=== PATIENT | female | born 1955 | race Caucasian/White ===

== ENCOUNTER → 2018-10-16 14:12 | Outpatient (CLI) | payer OTHER, SELFPAY ==
[2018-09-27 12:56] VITALS: BMI 31.0
[2018-10-16 15:50] LABS: Anion Gap 8 (5-15); BUN 13 mg/dL (7-18); BUN/Creat Ratio 20.2 RATIO (10-20); Calcium,Total 9.7 mg/dL (8.5-10.1); Chloride 106 mmol/L (98-107); Creatinine, Serum 0.64 mg/dL (0.55-1.02); EST Glomerular Filtration Rate 99 mL/min (>60); Est Glom Filt Rate - Afr Amer 119 mL/min (>60); Glucose 83 mg/dL (74-106); Potassium 3.4 mmol/L (3.5-5.1); Sodium Level 143 mmol/L (136-145)
--- OUTSIDE RECORDS SUMMARY | 2018-12-21 11:17 | XMS RPT_ITS ---
:1955 Author Organization [facility] Care Team Providers Name Role Phone Domingo Hernandezlas Attending Unavailable Brown, Tino Referring Unavailable Brown, Tino Attending Unavailable Brown, Tino Referring Unavailable Brown, Tino Primary Care Unavailable Milla Domínguez Attending Unavailable Brown, Tino Attending Unavailable Brown, Tino Referring Unavailable Brown, Tino Primary Care Unavailable PROBLEMS PROBLEMS DATE TYPE CONDITION / CODE ATTENDING STATUS SOURCE 09/27/2018 Unknown I10 - Essential Brown, Tino Active [place] (primary) [facility] hypertension / Hospital I10(ICD-10) Repository 03/19/2018 Unknown F41.9 - Anxiety Brown, Tino Active [place] disorder, Community unspecified / Hospital F41.9(ICD-10) Repository PROCEDURES PROCEDURES No Procedure Records FoundRESULTS RESULTS BASIC METABOLIC Collected: 10/16/2018 Status: F Source: [place] PROFILE (BMP) 2:19 PM [facility] REPOSITORY TYPE CODE TESTS RESULT OUT OF RANGE REFERENCE UNITS LAB L501.0100 74-106 mg/dL Normal GLU 83 Result Comment: Please note revised GLUCOSE reference range effective 2017. LAB L501.1000 7-18 mg/dL Normal BUN 13 LAB L501.1100 0.55-1.02 mg/dL Normal CREAT,SERUM 0.64 Result Comment: The validity of the calculated GFR AND GFRAA in patients over 70 years has not been determined. Clinical correlation is essential. LAB L501.1110 >60 mL/min Normal EST GFR 99 Result Comment: Non- GFR Calc LAB L501.1115 >60 mL/min Normal EST GFR - AA 119 Result Comment: GFR Calc LAB L501.1300 10-20 RATIO High BUN/CRE 20.2 LAB L501.2200 8.5-10.1 mg/dL CA Normal 9.7 LAB L501.5300 136-145 mmol/L NA Normal 143 LAB L501.5600 3.5-5.1 mmol/L Low K 3.4 LAB L501.5900 98-107 mmol/L CL Normal 106 LAB L501.6100 21.0-32.0 mmol/L Normal CO2 29.0 LAB L501.6200 5-15 Normal GAP 8 Performed By: #### L500.2500 #### [facility] [address] [place], [address] INTERNAL MEDICINE Observed: 09/27/2018 Status: F Source: [place] OFFICE VISIT 1:33 PM [facility] REPOSITORY [facility] [address] [place] [address] [place] [address] OFFICE VISIT Date of Service: 09/27/18 MR#: [id number] Acct: [id number] Name: DEYANIRA MISHRA Rep #: [id number] : 1955 Provider: Tino Hernandez DO Age/Sex: 62/F Location: [facility] Status: Signed Intake Vital Signs09/27/18 Height 5 ft Intake Visit Reasons: 6 MO FU Chief Complaint: medication refills Is patient in pain?: No Allergies Penicillins Allergy (Severe, Verified 03/19/18 14:17) hives Medications venlafaxine ER 75 mg capsule,extended release 24 hr 75 mg PO QDAY #90 cap 07/11/18 [Rx] amlodipine 5 mg-benazepril 20 mg capsule 1 cap PO QDAY #90 cap 09/27/18 [Rx Confirmed 09/27/18] Post menopausal: Yes PFSH Medical History Anxiety (Chronic) Hypertension (Chronic) Family History Father Myocardial infarction, Onset Age: 56 Mother Hypertension Heart disease Parkinsons Grandmother Diabetes Social History Smoking Status: Never smoker alcohol intake: never substance use type: does not use what type of physical activity do you participate in: walking frequency: 3-4 times per week HPI HPI Chief Complaint: medication refills Details: DEYANIRA MISHRA, is a 62 F who presents to the office today for checkup on her medications. She reports no new symptoms or problems has been taking her blood pressure regularly and is lost 5 pounds since she was last seen. ROS Const Constitutional: No weight change, body ache, chills, fatigue, sleep problems, fever(s), change in appetite, snoring, weakness, frequent falls, headache(s) or excessive sweating Eyes Eyes: No change in vision, eye pain, light sensitivity or blurry vision ENT ENT: No headache(s), abnormal hearing, ear pain, tinnitus, nasal congestion, sore throat or neck pain Resp Respiratory: No snoring, cough, shortness of breath or wheezing Cardio Cardiology: No excessive sweating, chest pain at rest, chest pain with exertion, shortness of breath, dyspnea on exertion, palpitations, orthopnea or lightheadedness Gastro GI: No abdominal pain, change in bowel habits, constipation, diarrhea, vomiting, nausea/dyspepsia or cramping Genitourinary-Female: No burning urination, painful urination, urinary incontinence, urinary frequency, abnormal vaginal bleeding, pelvic pain or other Musc Musculoskeletal: No neck pain, abnormal walking, joint pain, back pain, limited range of motion, numbness or tingling Skin Skin: No redness, dry skin, itching, lesions, wounds or rash Neuro Neurology: No weakness, frequent falls, headache(s), abnormal hearing, abnormal walking, numbness, tingling, abnormal speech, dizziness or memory loss Psych Psychiatric: No change in appetite, No memory loss, No anxiety, No depression, No Thoughts of harming yourself/Others Endo Endocrine: No fatigue, excessive sweating, cold intolerance, increased thirst/drinking, heat intolerance, flushing or increased hunger Aller/Imm Allergy/Immunologic: No wheezing, itchy eyes, hives or seasonal allergy symptoms Negrito/Lymp Hematologic/Lymphatic: No easy bleeding, easy bruising or enlarged lymph nodes Exam Const General: cooperative, healthy appearing Nutritional Appearance: average body habitus Orientation: oriented x3 Neck Neck mass: No Resp Effort AND Inspection: normal respiratory effort, symmetric chest movement Auscultation: Bilateral: Clear to Auscultation Cardio Rate: regular rate Rhythm: regular rhythm GI Inspection: normal to inspection Auscultation: normal bowel sounds Skin General: no rashes or lesions noted Neuro General: oriented x3, CN's II-XI intact bilaterally, normal light touch, pain and propioception Extrem General: normal to inspection, no clubbing, cyanosis or edema Psych Appearance: grossly normal Affect: normal affect Attitude: cooperative Assessment AND Plan Problems 1. Anxiety F41.9 2. Hypertension I10 Plan Patient's blood pressure medication was adjusted and the basic medical profile was ordered to see if there is any change in kidney function. I could not explain her increase in blood pressure except for the most common reason and that is advancing age. Physically she is fine on examination. She will have a daughter who is a nurse check her blood pressure at home after she has been on the new dose for several weeks and I gave her parameters to follow on when to call me if the pressures exceeded what I would like. Orders Orders: Medications Changed: Plan Detail Follow Up 6 Months Coding Level of Care Code Off vis,est,level 3 Diagnoses Anxiety F41.9 Hypertension I10 09/27/18 1333 <Electronically signed by Tino Hernandez DO> Date Tino Hernandez DO Cosigner Signature: Date (if applicable) CC: INTERNAL MEDICINE Observed: 03/19/2018 Status: F Source: [place] OFFICE VISIT 2:54 PM [facility] [address] [place] [address] OFFICE VISIT Date of Service: 03/19/18 MR#: [id number] Acct: [id number] Name: DEYANIRA MISHRA Rep #: [id number] : 1955 Provider: Tino Hernandez DO Age/Sex: 62/F Location: [facility] Status: Signed Intake Vital Signs03/19/18 Height 5 ft Intake Visit Reasons: EST Chief Complaint: medication refills Is patient in pain?: No Allergies Penicillins Allergy (Severe, Verified 03/19/18 14:17) hives Medications amlodipine 5 mg-benazepril 10 mg capsule 1 cap PO QDAY #60 cap 03/19/18 [Rx Confirmed 03/19/18] venlafaxine ER 75 mg capsule,extended release 24 hr 75 mg PO QDAY #60 cap 03/19/18 [Rx Confirmed 03/19/18] Post menopausal: Yes PFSH Medical History Anxiety (Chronic) Hypertension (Chronic) Family History Father Myocardial infarction, Onset Age: 56 Mother Hypertension Heart disease Parkinsons Grandmother Diabetes Social History Smoking Status: Never smoker alcohol intake: never substance use type: does not use what type of physical activity do you participate in: walking frequency: 3-4 times per week HPI HPI Chief Complaint: medication refills Details: DEYANIRA MISHRA, is a 62 F who presents to the office today for medication refills, and discussion about anxiety. ROS Const Constitutional: No weight change, body ache, chills, fatigue, sleep problems, fever(s), change in appetite, snoring, weakness, frequent falls, headache(s) or excessive sweating Eyes Eyes: No change in vision, eye pain, light sensitivity or blurry vision ENT ENT: No headache(s), abnormal hearing, ear pain, tinnitus, nasal congestion, sore throat or neck pain Resp Respiratory: No snoring, cough, shortness of breath or wheezing Cardio Cardiology: No excessive sweating, chest pain at rest, chest pain with exertion, shortness of breath, dyspnea on exertion, palpitations, orthopnea or lightheadedness Gastro GI: No abdominal pain, change in bowel habits, constipation, diarrhea, vomiting, nausea/dyspepsia or cramping Genitourinary-Female: No burning urination, painful urination, urinary incontinence, urinary frequency, abnormal vaginal bleeding, pelvic pain or other Musc Musculoskeletal: No neck pain, abnormal walking, joint pain, back pain, limited range of motion, numbness or tingling Skin Skin: No redness, dry skin, itching, lesions, wounds or rash Neuro Neurology: No weakness, frequent falls, headache(s), abnormal hearing, abnormal walking, numbness, tingling, abnormal speech, dizziness or memory loss Psych Psychiatric: No change in appetite, No memory loss, No anxiety, No depression, No Thoughts of harming yourself/Others Endo Endocrine: No fatigue, excessive sweating, cold intolerance, increased thirst/drinking, heat intolerance, flushing or increased hunger Aller/Imm Allergy/Immunologic: No wheezing, itchy eyes, hives or seasonal allergy symptoms Negrito/Lymp Hematologic/Lymphatic: No easy bleeding, easy bruising or enlarged lymph nodes Exam Const General: cooperative, healthy appearing Nutritional Appearance: average body habitus Orientation: oriented x3 Neck Neck mass: No Resp Effort AND Inspection: normal respiratory effort, symmetric chest movement Auscultation: Bilateral: Clear to Auscultation Cardio Rate: regular rate Rhythm: regular rhythm GI Inspection: normal to inspection Auscultation: normal bowel sounds Skin General: no rashes or lesions noted Neuro General: oriented x3, CN's II-XI intact bilaterally, normal light touch, pain and propioception Extrem General: normal to inspection, no clubbing, cyanosis or edema Psych Appearance: grossly normal Affect: normal affect Attitude: cooperative Assessment AND Plan Problems 1. Hypertension I10 2. Anxiety F41.9 Plan Pt. is here without complaints, she has done well, but is under a lot of stress. She has a daughter who had a post hysterectomy, and a grandchild with RSN. She will need a follow up for her depression medications. Physical exam was unchanged. Medications Refilled: Plan Detail Follow Up 6 Months Coding Level of Care Code Off vis,est,level 3 Diagnoses Hypertension I10 Anxiety F41.9 03/19/18 4963 <Electronically signed by Tino Hernandez DO> Date Tino Hernandez DO Cosigner Signature: Date (if applicable) CC: ALLERGIES ALLERGIES DATE TYPE / CODE NAME / CODE REACTION SEVERITY SOURCE 03/19/2018 Drug Penicillins/ Hives [facility] Allergy/4160 [id number](R Hospital 32089(SNOMED XNORM) Repository CT) ENCOUNTERS ENCOUNTERS ADMIT/DISCHARGE ACCOUNT ADMITTING ENCOUNTER LOCATION SOURCE NUMBER CLASS 10/16/2018 [id number] Ambulatory [place] 3 [facility] ing:LAB Repository 09/27/2018/ [id number] Ambulatory BMSBuilding:B [place] [facility] 7 [facility] Repository 03/19/2018/ [id number] Ambulatory BMSBuilding:[facility] [place] 8 7 [facility] Repository 02/01/2018 [id number] Ambulatory BMSBuilding:B [place] 5 [facility] Repository PAYERS PAYERS ENCOUNTER GUARANTOR PAYER SUBSCRIBER SOURCE 10/16/2018 DEYANIRA J Primary DEYANIRA J [place] [id number] TURPIN Insurance:AETNAPolicy BOLDMANDOB: [facility], [facility]: [id number] [address]Cwp: [id number] Repository Date:[id number] [place] [address]GA: 10/16/2018 Secondary NOT GIVENUNK [place] Insurance:SELF PAY [facility] Number: Effective Repository Date:2018-10-16 09/27/2018 DEYANIRA Primary DEYANIRA [place] [id number] PAPI Insurance:AETNAPolicy BOLDMANDOB: [facility], Number: [id number] [address]Ovx: [id number] Repository Date:[id number] [address] () [id number], [place] [address]YN: 09/27/2018 Secondary NOT GIVENUNK [place] Insurance:SELF PAY [facility] Number: Effective Repository Date:2018-09-25 03/19/2018 [place] Primary DEYANIRA [place] [id number] Insurance:AETNAPolic BOLDMANDOB: [facility] Number: [id number] [id number] Repository [address]ln: [phone]) Date:2937-28-92FE [phone] () [id number] [place] [address]HE: 03/19/2018 Secondary NOT GIVENUNK [place] Insurance:SELF PAY [facility] Effective Repository Date:2018-01-08 02/01/2018 [place] Primary [place] [id number] Insurance:AETNAPolicy BoldmanDOB: [facility] Number: [id number] [id number] Repository [address]Duz: (330) Date:5826-17-54UG [phone] () [id number] [place] [address]KN: 02/01/2018 Secondary NOT GIVENUNK [place] Insurance:SELF PAY [facility] Number: Effective Repository Date:2018-02-01
== END ==
PROVIDERS: Family Provider Family Medicine; PCP Family Medicine; Referring Provider Family Medicine; Visit Provider Family Medicine
DX: I10 Essential (primary) hypertension (principal)
CPT/HCPCS: 36415; 80048

== ENCOUNTER → 2019-11-03 11:48 | Outpatient (CLI) | payer MEDICARE, OTHER, SELFPAY ==
[2019-10-23 13:43] VITALS: BMI 31.0
[2019-11-03 13:04] LABS: Anion Gap 4 (5-15); BUN 8 mg/dL (7-18); BUN/Creat Ratio 11.7 RATIO (10-20); Calcium,Total 9.1 mg/dL (8.5-10.1); Chloride 108 mmol/L (98-107); Creatinine, Serum 0.68 mg/dL (0.55-1.02); EST Glomerular Filtration Rate 91 mL/min (>60); Est Glom Filt Rate - Afr Amer 110 mL/min (>60); Glucose 89 mg/dL (74-106); Potassium 3.3 mmol/L (3.5-5.1); Sodium Level 142 mmol/L (136-145)
== END ==
PROVIDERS: PCP Family Medicine; Referring Provider Family Medicine; Visit Provider Family Medicine
DX: I10 Essential (primary) hypertension (principal)
CPT/HCPCS: 36415; 80048

== ENCOUNTER → 2020-11-30 13:29 | Outpatient (CLI) | payer MEDICARE, OTHER, SELFPAY ==
[2020-11-30 13:00] VITALS: BMI 31.2
[2020-11-30 15:22] LABS: Anion Gap 4 (5-15); BUN 16 mg/dL (7-18); BUN/Creat Ratio 24.2 RATIO (10-20); Calcium,Total 9.4 mg/dL (8.5-10.1); Chloride 106 mmol/L (98-107); Creatinine, Serum 0.66 mg/dL (0.55-1.02); EST Glomerular Filtration Rate 95 mL/min (>60); Est Glom Filt Rate - Afr Amer 115 mL/min (>60); Glucose 87 mg/dL (74-106); Potassium 3.5 mmol/L (3.5-5.1); Sodium Level 141 mmol/L (136-145)
== END ==
PROVIDERS: PCP Family Medicine; Visit Provider Family Medicine
DX: I10 Essential (primary) hypertension (principal)
CPT/HCPCS: 36415; 80048

== ENCOUNTER → 2020-12-07 13:30 | Outpatient (CLI) | payer MEDICARE, OTHER, SELFPAY ==
[2020-11-30 13:00] VITALS: BMI 31.2
--- NOTE | 2020-12-07 13:33 | BI_ITS ---
MAMMOGRAPHY - BILATERAL SCREENING REASON FOR EXAM: Female, 65 years old. Routine annual screening examination. PERTINENT HISTORY: PAT AND MAT AUNTS AGES 30S-50S NO SX TECHNIQUE: Digital bilateral breast sydnie (3D mammographic acquisition) in the CC and MLO projections. 2-D mediolateral oblique (MLO) and craniocaudad (CC) views of both breasts were obtained. CAD: Full Field Digital Mammography with Computer Added Detection was performed. COMPARISON: 04/13/2017 FINDINGS: Breast Composition: The breasts are almost entirely fatty. There are no dominant masses or suspicious calcifications. No other significant abnormalities are identified. BI/SCRN MAMM (CAD)W/SYDNIE BILAT IMPRESSION: Stable bilateral screening mammogram. Yearly follow-up mammogram recommended. (A) ASSESSMENT CATEGORY: BIRADS Category 2: Benign. A letter regarding these results will be sent to the patient by the facility within 30 days. Approximately 10% of breast cancers are not detected by mammography. A normal mammogram should not delay biopsy of a clinically suspicious abnormality. [id number] Electronically Signed: Tisha Matos MD at 16:51 EST Tel , Service support ,
== END ==
PROVIDERS: PCP Family Medicine; Referring Provider Family Medicine; Visit Provider Family Medicine
DX: Z12.31 Encounter for screening mammogram for malignant neoplasm of breast (principal)
CPT/HCPCS: 77063; 77067

== ENCOUNTER 2021-03-22 13:40 | Emergency (ER) | payer MEDICARE, OTHER, SELFPAY ==
[2020-11-30 13:00] VITALS: BMI 31.2
[2021-03-22 13:40] VITALS: BP 148/74; PULSE 80; RESP 16; TEMP 36.4; O2SAT 96; BMI 29.5
--- NOTE | 2021-03-22 14:56 | EX.ED.GENINJ ---
HPI History of Present Illness Chief Complaint: Laceration Informant: patient Onset/Context/Timing Onset: Today (JPTA) Mechanism/Context: Blunt Injury Location of pain/injuries: - (left upper face) Quality of Pain: - (sore) Current Severity: Mild Maximum Severity: Mild Worsened by: palpation Relieved by: leaving alone Associated Symptoms Associated Symptoms: Negative for Parasthesias, Weakness, Loss of function, Loss of consciousness and Amnesia Narrative Narrative: Patient was trimming a tree and a branch snapped back and accidentally caused the tools she was using to hit her in the face above the left eyebrow, sustaining a laceration. No loss of consciousness, she has a mild headache, no nausea or vomiting, vision changes, foreign body sensation in her eyes or skin, or any other systemic symptoms. Her daughter used some butterfly bandages to fix it prior to arrival, she presents for evaluation. Tetanus Immunization: 5-[address] [facility] Medical History Anxiety History of rheumatic fever as a child Hypertension Home Medications amlodipine 5 mg-benazepril 20 mg capsule 1 cap PO QDAY #30 cap 11/30/20 [Rx Last Taken Unknown] venlafaxine 150 mg capsule,extended release 24 hr 150 mg PO QDAY #30 cap 11/30/20 [Rx Last Taken Unknown] buspirone 10 mg tablet 10 mg PO BID #60 tablet 01/14/21 [Rx Last Taken Unknown] Allergy/AdvReac Type Severity Reaction Status Date / Time Penicillins Allergy Severe hives Verified 03/22/21 13:42 Family History Father Myocardial infarction, Onset Age: 56 Mother Hypertension Heart disease Parkinsons Grandmother Diabetes Surgical History (Updated 03/22/21 @ 14:27 by Giuliana Ervin) History of tonsillectomy Social History Smoking Status: Never smoker alcohol intake: never substance use type: does not use what type of physical activity do you participate in: walking frequency: 3-4 times per week ROS ROS ED Constitutional Constitutional ED: Denies chills or fever(s) Eyes Eyes: Denies change in vision, discharge from eye(s), eye pain or foreign body ENT ENT ED: Reports as per HPI; Denies dental pain, discharge from eye(s) or ear pain Gastrointestinal Gastrointestinal: Denies nausea or vomiting Musculoskeletal Musculoskeletal: Denies back pain, extremity pain or neck pain Integumentary Reports as per HPI and wounds; Denies Abrasions or rash Neurologic Neurologic: Denies paresthesias or weakness EXAM Physical Exam Const Vital Signs: 03/22/21 13:40 Temperature 97.6 F L Temperature Source Temporal Pulse Rate 80 Respiratory Rate 16 Blood Pressure 148/74 H Blood Pressure Mean 98 Pulse Ox 96 Oxygen Delivery Method Room Air Positive well nourished and well developed General Appearance ED: well developed and NAD HEENT HEENT Narrative: Laceration above the left eyebrow, no crepitance or depression. Midface stable and otherwise atraumatic. Eyes PERRL and EOMs intact bilaterally Eyes Narrative: No scleral/conjunctival injection or signs of foreign body Neck full ROM and supple Back/Spine normal ROM and normal to inspection Neuro oriented x3, no focal motor deficits and no sensory deficits noted Sensorium / Orientation: alert Psych mental status grossly normal and thought process normal Skin Skin Narrative: 1 cm laceration left upper face above the eyebrow with small contusion without hematoma, crepitance, depression. No tenderness at the superior orbital brim. 2 butterfly bandages are across the wound, and there is good skin edge apposition with no active bleeding or signs of obvious contamination Rashes: no rashes MDM MDM MDM Narrative Medical decision making narrative: Patient decided to decline a tetanus update and will check with her doctor on exactly when she last received it which I think is fine I think this is a relatively low risk injury. With regards to her laceration, I do not think removing the bandages and suturing or gluing would provide better skin edge apposition then the butterfly bandages that are currently there. They cleaned it, we discussed looking for signs and symptoms of infection, and reasons to return but they were comfortable with this plan, I recommend removing the butterfly bandages in 5-6 days. Discharge Plan Triage Chief Complaint: Laceration ED Provider: Mane Parks Dx/Rx/DC Orders Clinical Impression: Facial laceration Instructions: ED Laceration Small or ... Prescriptions: No Action amlodipine-benazepril 5-20 mg capsule 1 cap PO QDAY Qty: 30 RF: 12 venlafaxine 150 mg capsule,extended release 24hr 150 mg PO QDAY Qty: 30 RF: 6 buspirone 10 mg tablet 10 mg PO BID Qty: 60 RF: 2 Primary Care Provider: Tino Hernandez Referrals: Tino Hernandez, [Primary Care Provider] - As Needed Disposition Disposition: Home, Self Care Discharge Date/Time: 03/22/21 15:04
== END 2021-03-22 15:04 | disposition home or self-care (01) ==
PROVIDERS: Emergency Provider Emergency Medicine; PCP Family Medicine
DX: S01.81XA Laceration without foreign body of other part of head, initial encounter (principal); W27.8XXA Contact with other nonpowered hand tool, initial encounter; Y93.89 Activity, other specified; Y92.89 Other specified places as the place of occurrence of the external cause; Y99.9 Unspecified external cause status; F41.9 Anxiety disorder, unspecified; I10 Essential (primary) hypertension
CPT/HCPCS: 99282

== ENCOUNTER → 2021-04-26 14:52 | Outpatient (CLI) | payer MEDICARE, OTHER, SELFPAY ==
[2021-04-26 14:35] VITALS: BMI 29.5
[2021-04-26 17:15] LABS: Absolute Lymphocyte Count 2.27 X10^3/uL (0.83-4.51); Absolute Neutrophil Count 4.8 X10^3/uL (2.0-7.7); Basophil# 0.06 X10^3/uL; Basophil% 0.8 % (0-1); Eosinophil# 0.09 X10^3/uL; Eosinophils% 1.1 % (0-5); Hematocrit 46.3 % (37-47); Hemoglobin 15.5 g/dL (12.0-15.0); Lymphocyte # 2.27 X10^3/ul (0.83-4.51); Lymphocyte % 28.8 % (19-41); Mean Corp Hgb Conc 33.5 g/dL (32-36); Mean Corpuscular Hgb 31.4 pg (27.0-32.0); Mean Corpuscular Volume 93.7 fL (81-99); Mean Platelet Vol. 10.6 fl (6.2-12.0); Monocyte# 0.66 X10^3/uL; Monocyte% 8.4 % (0-10); NRBC Flagged by Analyzer 0 % (0-5); Neutrophil # 4.78 X10^3/uL (2.7-7.7); Neutrophil % 60.6 % (47-70); Platelet Count 383 K/mm3 (150-450); RBC Distribution Width CV 12.8 % (11.6-14.6); Red Blood Count 4.94 M/mm3 (4.2-5.4); White Blood Count 7.9 K/mm3 (4.4-11.0)
== END ==
PROVIDERS: PCP Family Medicine; Referring Provider Nurse Practitioner Family; Visit Provider Nurse Practitioner Family
DX: I10 Essential (primary) hypertension (principal)
CPT/HCPCS: 36415; 84443; 85025

== ENCOUNTER → 2021-08-23 13:51 | Outpatient (CLI) | payer MEDICARE, OTHER, SELFPAY ==
[2021-08-23 15:14] LABS: Absolute Lymphocyte Count 2.38 X10^3/uL (0.83-4.51); Absolute Neutrophil Count 3.4 X10^3/uL (2.0-7.7); Basophil# 0.05 X10^3/uL; Basophil% 0.8 % (0-1); Eosinophil# 0.13 X10^3/uL; Hematocrit 42.6 % (37-47); Hemoglobin 14.5 g/dL (12.0-15.0); Lymphocyte # 2.38 X10^3/ul (0.83-4.51); Lymphocyte % 36.4 % (19-41); Mean Corpuscular Hgb 31.3 pg (27.0-32.0); Mean Corpuscular Volume 91.8 fL (81-99); Mean Platelet Vol. 10.5 fl (6.2-12.0); Monocyte# 0.56 X10^3/uL; Monocyte% 8.6 % (0-10); NRBC Flagged by Analyzer 0 % (0-5); Neutrophil % 51.9 % (47-70); Platelet Count 349 K/mm3 (150-450); RBC Distribution Width CV 12.4 % (11.6-14.6); RBC Distribution Width SD 41.5 fl (35.1-43.9); Red Blood Count 4.64 M/mm3 (4.2-5.4); White Blood Count 6.5 K/mm3 (4.4-11.0)
[2021-08-23 15:30] LABS: Anion Gap 5 (5-15); BUN 8 mg/dL (7-18); BUN/Creat Ratio 11.7 RATIO (10-20); Calcium,Total 9.2 mg/dL (8.5-10.1); Chloride 111 mmol/L (98-107); Creatinine, Serum 0.69 mg/dL (0.55-1.02); EST Glomerular Filtration Rate 91 mL/min (>60); Est Glom Filt Rate - Afr Amer 110 mL/min (>60); Glucose 90 mg/dL (74-106); Potassium 3.5 mmol/L (3.5-5.1); Sodium Level 144 mmol/L (136-145)
== END ==
PROVIDERS: PCP Family Medicine; Referring Provider Nurse Practitioner Family; Visit Provider Nurse Practitioner Family
DX: I10 Essential (primary) hypertension (principal); F41.9 Anxiety disorder, unspecified
CPT/HCPCS: 36415; 80048; 84443; 85025

== ENCOUNTER → 2022-09-26 | Outpatient (CLI) | payer MEDICARE, OTHER, SELFPAY ==
[2022-09-26 15:08] LABS: Absolute Lymphocyte Count 2.47 X10^3/uL (0.83-4.51); Absolute Neutrophil Count 2.6 X10^3/uL (2.0-7.7); Basophil# 0.03 X10^3/uL; Basophil% 0.5 % (0-1); Eosinophil# 0.14 X10^3/uL; Eosinophils% 2.3 % (0-5); Hematocrit 44.1 % (37-47); Hemoglobin 14.5 g/dL (12.0-15.0); Lymphocyte # 2.47 X10^3/ul (0.83-4.51); Lymphocyte % 41.3 % (19-41); Mean Corp Hgb Conc 32.9 g/dL (32-36); Mean Corpuscular Hgb 32.3 pg (27.0-32.0); Mean Corpuscular Volume 98.2 fL (81-99); Mean Platelet Vol. 9.7 fl (6.2-12.0); Monocyte# 0.69 X10^3/uL; Monocyte% 11.5 % (0-10); NRBC Flagged by Analyzer 0 % (0-5); Neutrophil # 2.61 X10^3/uL (2.7-7.7); Neutrophil % 43.7 % (47-70); Platelet Count 350 K/mm3 (150-450); RBC Distribution Width CV 12.7 % (11.6-14.6); RBC Distribution Width SD 45.8 fl (35.1-43.9); Red Blood Count 4.49 M/mm3 (4.2-5.4)
[2022-09-26 15:47] LABS: AST(SGOT) 21 U/L (15-37); Alanine Aminotransfer ALT/SGPT 28 U/L (13-56); Albumin, Serum 3.3 g/dL (3.2-5.0); Alkaline Phosphatase 61 U/L (45-117); Anion Gap 6 (5-15); BUN 8 mg/dL (7-18); BUN/Creat Ratio 12.7 RATIO (10-20); Calcium,Total 8.9 mg/dL (8.5-10.1); Chloride 106 mmol/L (98-107); Creatinine, Serum 0.63 mg/dL (0.55-1.02); EST Glomerular Filtration Rate 100 mL/min (>60); Est Glom Filt Rate - Afr Amer 121 mL/min (>60); Globulin 3.4 g/dL (2.2-4.2); Glucose 86 mg/dL (74-106); Potassium 3.5 mmol/L (3.5-5.1); Protein, Total 6.7 g/dL (6.4-8.2); Sodium Level 142 mmol/L (136-145)
== END | disposition home or self-care (01) ==
LOC: BIMLAB 14:20
PROVIDERS: PCP Family Medicine; Referring Provider Family Medicine; Visit Provider Family Medicine
DX: I10 Essential (primary) hypertension (principal)
CPT/HCPCS: 36415; 80053; 85025

== ENCOUNTER → 2023-10-17 | Outpatient (CLI) | payer MEDICARE, OTHER, SELFPAY ==
--- OUTSIDE RECORDS SUMMARY | 2023-10-17 11:38 | XMS RPT_ITS | CCD ---
Author Name Unknown Address [address] [place] [address] Organization [facility] Care Team Providers Care Kennel Supervisor Name Role Phone BROWN, DAKOTAH R Unavailable Unavailable BROWN, DAKOTAH R Unavailable Unavailable BROWN, DAKOTAH R Unavailable Unavailable BROWN, DAKOTAH R Unavailable Unavailable BROWN, DAKOTAH R Unavailable Unavailable Unavailable Primary Care Provider Unavailabl e Brown DO, Dakotah R Primary Care Provider David BENSON Dakotah R Primary Care Provider LAYLA ST Referring Unavailable BROWN, DAKOTAH R Primary Care Unavailable BROWN, DAKOTAH R Primary Care Unavailable BROWN, DAKOTAH R Primary Care Unavailable BROWN, DAKOTAH R Primary Care Unavailable Allergies Allergy Classification Reported Allergen(s) Allergy Type Date of Onset Reaction(s) Facility (7 sources) Penicillins; Translations: [PENICILLINS] Drug Allergy 06-22-2022 Rash [facility] Medications Current Medications Medication Drug Class(es) Dates Sig (Normalized) Sig (Original) doxycycline hyclate 100 mg oral tablet (1 source) Tetracycline-clas s Drug Start: 08-10-2022 End: 08-20-2022 take 1 tablet by mouth twice daily doxycycline (VIBRA-TABS) 100 mg tablet Indications: Bacterial sinusitis Take 1 tablet by mouth twice daily for 10 days. 20 tablet 0 08/10/2022 08/20/2022 Active Completed/Discontinued Medications Medication Drug Class(es) Dates Sig (Normalized) Sig (Original) amLODIPine 10 mg / benazepril hydrochloride 20 mg oral capsule (6 sources) Dihydropyridine Calcium Channel [place], Angiotensin Converting Enzyme Inhibitor Start: 04-16-2022 take 1 capsule by mouth once daily amLODIPine-benaz epril (LOTREL) 10-20 mg per capsule Take 1 capsule by mouth once daily. 0 04/16/2022 Active Problems Active Problems Problem Classification Problem Date Documented Da te Episodic/Chronic Other non-traumatic joint disorders (1 source) Pain in right knee; Translations: [Pain in joint, lower leg] Episodic Other non-traumatic joint disorders (1 source) Pain in right hip joint; Translations: [Pain in right hip] 07-12-2023 Episodic Other non-traumatic joint disorders (1 source) Pain in right hip; Translations: [Right hip pain] Onset: 07-12-2023 Episodic Other upper respiratory infections (1 source) Bacterial sinusitis; Translations: [Chronic sinusitis, unspecified] Chronic Other upper respiratory infections (1 source) Sore throat symptom; Translations: [Acute pharyngitis, unspecified] 04-16-2023 Episodic Spondylosis; intervertebral disc disorders; other back problems (1 source) Low back pain; Translations: [Lumbar pain] 07-12-2023 Episodic Unclassified (1 source) Unknown / UNK(Unknown) Onset: 04-13-2017 Unclassified (1 source) Lumbar pain; Translations: [Lumbar pain] Onset: 07-12-2023 Past or Other Problems Problem Classification Problem Date Documented Da te Episodic/Chronic Unclassified (1 source) SCREENING Onset: 04-13-2017 Results Test Name Value Interpretation Reference Range Facil ity Vital Signs Date Time Vital Sign Value Performing Clinician Natalya lundberg 07-12-2023 11:55-0400 Body temperature 98.1 [degF] Layla St [employer] OV[employer] TENDER Work Phone: [facility] 07-12-2023 11:55-0400 Body weight 82.[address] [employer] TENDER Work Phone: [facility] 07-12-2023 11:55-0400 Diastolic blood pressure 80 mm[Hg] Layla St [employer] TENDER Work Phone: [facility] 07-12-2023 11:55-0400 Heart rate 83 /min Layla [facility] [employer] TENDER Work Phone: [facility] 07-12-2023 11:55-0400 Respiratory rate 18 /min Layla [facility] [employer] TENDER Work Phone: [facility] 07-12-2023 11:55-0400 SaO2% (BldA) [Mass fraction] 97 % Layla [facility] [employer] TENDER Work Phone: [facility] 07-12-2023 11:55-0400 Systolic blood pressure 131 mm[Hg] Layla St [employer] OV[employer] TENDER Work Phone: [facility] 04-16-2023 07:25-0400 Body temperature 98.4 [degF] Az Duncan MD Work Phone: [facility] 04-16-2023 07:25-0400 Body weight 81.19 kg Az Duncan MD Work Phone: [facility] 04-16-2023 07:25-0400 Diastolic blood pressure 84 mm[Hg] Az Duncan MD Work Phone: [facility] 04-16-2023 07:25-0400 Heart rate 76 /min Az Duncan MD Work Phone: [facility] 04-16-2023 07:25-0400 Respiratory rate 16 /min Az Duncan MD Work Phone: [facility] 04-16-2023 07:25-0400 SaO2% (BldA) [Mass fraction] 95 % Az Duncan MD Work Phone: [facility] 04-16-2023 07:25-0400 Systolic blood pressure 136 mm[Hg] Az Duncan MD Work Phone: [facility] 08-10-2022 14:16-0500 Body temperature 98.01 [degF] Carmencita Green [employer] T[employer]ER Work Phone: [facility] 08-10-2022 14:16-0500 Body weight 73.3 kg Carmencita Mujica-Negro [employer] TENDER Work Phone: [facility] 08-10-2022 14:16-0500 Diastolic blood pressure 84 mm[Hg] Carmencita Puenteler-Negro [employer] OV[employer] TENDER Work Phone: [facility] 08-10-2022 14:16-0500 Heart rate 77 /min Carmencita Praisler-Wood [employer] TENDER Work Phone: [facility] 08-10-2022 14:16-0500 Respiratory rate 18 /min Carmencita Praisler-Wood [employer] TENDER Work Phone: [facility] 08-10-2022 14:16-0500 SaO2% (BldA) [Mass fraction] 97 % Carmencita Praisler-Wood [employer] TENDER Work Phone: [facility] 08-10-2022 14:16-0500 Systolic blood pressure 128 mm[Hg] Carmencita Praisler-Wood [employer] TENDER Work Phone: [facility] 06-22-2022 15:19-0400 Body temperature 98.91 [degF] Anselmo Avel [employer] T[employer]ER Work Phone: [facility] 06-22-2022 15:19-0400 Body weight 73.75 kg Anselmo Avel [employer] TENDER Work Phone: [facility] 06-22-2022 15:19-0400 Diastolic blood pressure 82 mm[Hg] Anselmo Avel [employer] TENDER Work Phone: [facility] 06-22-2022 15:19-0400 Heart rate 69 /min Anselmo Avel [employer] TENDER Work Phone: [facility] 06-22-2022 15:19-0400 Respiratory rate 16 /min Anselmo Avel [employer] TENDER Work Phone: [facility] 06-22-2022 15:19-0400 SaO2% (BldA) [Mass fraction] 97 % Anselmo Avel [employer] TENDER Work Phone: [facility] 06-22-2022 15:19-0400 Systolic blood pressure 122 mm[Hg] Anselmo Avel [employer] TENDER Work Phone: [facility] Encounters Encounter Date Encounter Type Care Provider Facility Start: 07-12-2023 Telephone encounter Layla moyer [employer] T[employer]ER Work Phone: [facility] Procedures Date Procedure Procedure Detail Performing Clinician Start: 04-16-2023 STREP A MOLECULAR (POC) Az Duncan MD Work Phone: Start: 06-22-2022 Radiologic exam knee complete 4/more views Anselmo Vallecillo APRN.CNP Work Phone: Plan of Treatment Date Care Activity Detail Author Start: 06-01-2023 Covid-19 Vaccine () Covid-19 Vaccine () [facility] Start: 06-01-2023 Influenza vaccination C [facility] Start: 10-01-2022 ADVANCE DIRECTIVE DISCUSSION ADVANCE DIRECTIVE DISCUSSION [facility] Start: 10-01-2022 DEPRESSION ASSESSMENT DEPRESSION ASS ESSMENT [facility] Start: 06-01-2022 Influenza vaccination INFLUENZA (#1) [facility] Start: 12-01-2021 COVID-19 VACCINE (3 - Booster for Anjelica series) COVID-19 VACCINE (3 - Booster for Anjelica series) [facility] Start: 10-01-2021 ADVANCE DIRECTIVE DISCUSSION ADVANCE DIRECTIVE DISCUSSION [facility] Start: 10-01-2021 DEPRESSION ASSESSMENT DEPRESSION ASS ESSMENT [facility] Start: 2018 BONE DENSITY BONE DENSITY [facility] Start: 2018 Bone Density Screening Bone Density Screening [facility] Start: 2018 Pneumococcal Vaccine : 65+ (1 - PCV) Pneumococcal Vaccine: 65+ (1 - PCV) [facility] Start: 2018 PNEUMOCOCCAL: 65+ (1 - PCV) PNEUMOCOCCAL: 65+ (1 - PCV) [facility] Start: 2003 SHINGRIX VACCINE (1 of 2) SHINGRIX V ACCINE (1 of 2) [facility] Start: 1998 COLOGUARD (FIT-DNA) COLOGUARD (FIT-D NA) [facility] Start: 1998 Colonoscopy COLONOSCOPY [facility] Start: 1998 COLORECTAL CANCER SCREENING COLORECTAL CANCER SCREENING [facility] Start: [address] COLONOGRAPHY [facility] Start: 1998 DIABETES SCREEN DIABETES SCREEN [facility] Start: 1998 Diabetes Screening Diabetes Screenin g [facility] Start: 1998 FECAL OCCULT BLOOD FECAL OCCULT BLOO D [facility] Start: 1998 Lipid 1996 panel - S anuj or Plasma Lipid Screening [facility] Start: 1998 LIPID SCREEN LIPID SCREEN [facility] Start: 1998 SIGMOIDOSCOPY SIGMOIDOSCOPY [facility] Start: 1993 Mammography [facility] Start: 1972 Urine microalbumin profile [facility] Start: 1971 HEPATITIS C SCREENING HEPATITIS C SC REENING [facility] Start: 1965 Adult depression scr eening assessment DEPRESSION SCREENING [facility] Immunizations Immunization Date Immunization Notes Care Provider Fa cility 07-26-2021 influenza virus vacc ine, unspecified formulation Layla St [employer] T[employer]ER Work Phone: [facility] Payers Date Payer Category Payer Medicare MEDICARE MEDICAR E A AND B [id number] 2018-Present [phone] [address] [address] [place] [address] Medicare [id number] 2018 Medicare [id number] 2015 Private Health Insurance [id number] Social History Date Type Detail Facility Start: 06-22-2022 Tobacco smoking stat [facility] Never smoked tobacco [facility] Start: 06-22-2022 Tobacco use and exposure Smoke less tobacco non-user [facility] Start: 1955 Sex Assigned At Not on file [facility] Start: 08-10-2022 End: 07-12-2023 Alcohol intake Lifetime non-drinker (finding) [facility] Start: 07-31-2022 End: 08-10-2022 Exposure to SARS-CoV-2 (event) Not sure [facility] Start: 04-16-2023 End: 07-12-2023 History of Social function [facility] Start: 04-16-2023 End: 07-12-2023 Tobacco use panel [facility] Clinical Notes 06-22-2022 to 07-12-2023 Telephone Encounter - Layla St APRN.BLUING OVEN TENDER - 07/12/2023 12:50 PM EDLayla Kendall APRN.CNP - 07/12/2023 12:07 PM EDAz Malcolm MD - 04/16/2023 7:32 AM EDTPatient Instructions Note Date & Type Note Facility 07-12-2023 Note HNO ID: [id number] Author: Rea Nuñez RT(R) Service: Radiology Author Type: Technologist Type: Progress Notes Filed: 07/12/2023 12:34 PM Note Text: Radiology Service Progress Note PATIENT NAME: Deyanira Moon DATE OF SERVICE: July 12, 2023 TIME: 12:20 PM PATIENT IDENTITY VERIFICATION COMPLETED USING TWO (2) IDENTIFIERS: Name and Date of confirmed by patient verbally. FALL SCREENING: Has the patient had 2 falls in the last year or 1 fall with injury or currently using an Ambulatory Assistive Device (Walker, Cane, Wheelchair, Crutches, etc.)? No PATIENT GENDER DATA: Female. status: : No status: NO. PATIENT RELEVANT IMPLANT DATA REVIEWED: Yes RADIOLOGY DEPARTMENT: General X-ray: Exam(s) Completed: Spine X-Ray(s): Lumbar AP / LAT / L5-S1 Pelvis X-Ray: Pelvis with Hip Right PERIPHERAL IV DATA: Not applicable SIGNED BY: RT Raj(R) July 12, 2023 12:20 PM [facility] 07-12-2023 Note HNO ID: [id number] Author: Layla St APRN.JAJA Service: ? Author Type: Nurse Practitioner Type: Progress Notes Filed: 07/12/2023 12:59 PM Note Text: This note was created using NoteWriter. Subjective Deyanira oMon is a 67 year old female. 67 year old female with no significant PMH presents for complaints of pain. Acute onset 2 to 3 weeks ago Right lower back Right hip. Pain is intermittent. Aching Denies sx. Has used Excedrin, with relief. Endorses yesterday she felt better, went out and shopping. Endorses that the walking seemed to exacerbate. Denies unilateral weakness, saddle anesthesia, inability to ambulate or IV drug usage. The history is provided by the patient. No language asst was used. Back Pain This is a new problem. The current episode started more than 1 week ago. The problem occurs constantly. The problem has not changed since onset.The pain is associated with no known injury. The pain is present in the sacro-iliac joint. The quality of the pain is described as aching. The pain is at a severity of 5/10. The pain is moderate. The symptoms are aggravated by certain positions. The pain is The same all the time. Stiffness is present All day. Pertinent negatives include no chest pain, no fever, no numbness, no weight loss, no headaches, no abdominal pain, no abdominal swelling, no bowel incontinence, no perianal numbness, no bladder incontinence, no dysuria, no pelvic pain, no leg pain, no paresthesias, no paresis, no tingling and no weakness. She has tried NSAIDs (excedrin) for the symptoms. The treatment provided moderate relief. Risk factors include menopause and lack of exercise. PAST MEDICAL HISTORY Diagnosis Date Anxiety H/O: rheumatic fever Hypertension PAST SURGICAL HISTORY Procedure Laterality Date TONSILLECTOMY AND ADENOIDECTOMY ALLERGIES Penicillins MEDICATIONS amLODIPine-benazepril (LOTREL) 10-20 mg per capsule Take 1 capsule by mouth once daily. ARIPiprazole (ABILIFY) 10 mg tablet Take 10 mg by mouth once daily. cyclobenzaprine (FLEXERIL) 10 mg tablet Take 1 tablet by mouth three times a day as needed for muscle spasm. divalproex DR (DEPAKOTE) 500 mg EC tablet Take 500 mg by mouth twice daily. fluvoxaMINE (LUVOX) 50 mg tablet Take 50 mg by mouth daily at bedtime. (Patient not taking: Reported on 07/12/2023) methylPREDNISolone (MEDROL, MILTON,) 4 mg Dose-Pack Follow dosing instructions, take with food. zolpidem (AMBIEN) 10 mg Take 10 mg by mouth daily at bedtime. No family history on file. Social History Tobacco Use Smoking status: Never Smokeless tobacco: Never Substance Use Topics Alcohol use: Never Drug use: Never Review of Systems Constitutional: Negative for activity change, appetite change, chills, fever and weight loss. Eyes: Negative for pain, discharge, redness and itching. Respiratory: Negative for apnea, cough, choking, chest tightness and shortness of breath. Cardiovascular: Negative for chest pain. Gastrointestinal: Negative for abdominal pain, bowel incontinence, diarrhea and vomiting. Genitourinary: Negative for bladder incontinence, dysuria and pelvic pain. Musculoskeletal: Positive for back pain. Skin: Negative for color change, pallor, rash and wound. Allergic/Immunologic: Negative for environmental allergies, food allergies and immunocompromised state. Neurological: Negative for dizziness, tingling, facial asymmetry, weakness, numbness, headaches and paresthesias. Hematological: Negative for adenopathy. Does not bruise/bleed easily. Psychiatric/Behavioral: Negative for agitation and behavioral problems. Objective BP 131/80 Pulse 83 Temp 36.7 ?C (98.1 ?F) Resp 18 Wt 82.5 kg (181 lb 12.8 oz) SpO2 97% Physical Exam Vitals and nursing note reviewed. Constitutional: General: She is not in acute distress. Appearance: Normal appearance. She is normal weight. She is not ill-appearing, toxic-appearing or diaphoretic. HENT: Head: Normocephalic and atraumatic. Right Ear: Ear canal and external ear normal. Left Ear: Ear canal and external ear normal. Nose: Nose normal. No congestion or rhinorrhea. Mouth/Throat: Mouth: Mucous membranes are moist. Pharynx: No oropharyngeal exudate or posterior oropharyngeal erythema. Eyes: General: Right eye: No discharge. Left eye: No discharge. Extraocular Movements: Extraocular movements intact. Conjunctiva/sclera: Conjunctivae normal. Pupils: Pupils are equal, round, and reactive to light. Cardiovascular: Rate and Rhythm: Normal rate and regular rhythm. Pulses: Normal pulses. Heart sounds: Normal heart sounds. No murmur heard. No friction rub. Pulmonary: Effort: Pulmonary effort is normal. No respiratory distress. Breath sounds: Normal breath sounds. No stridor. No wheezing, rhonchi or rales. Chest: Chest wall: No tenderness. Abdominal: General: Abdomen is flat. There is no disten (more content not included)... [facility] 07-12-2023 Miscellaneous Notes Attempted to call and inform patient of xray results. Xray hip and spine reveal degenerative changes. Patient should take medicines. F/U wit PCP for continued symptoms for PT and MRI documented in this encounter [facility] 07-12-2023 History of Presen t illness Narrative This note was created using AppDynamicsriter. Subjective Deyanira Moon is a 67 year old female. 67 year old female with no significant PMH presents for complaints of pain. Acute onset 2 to 3 weeks ago Right lower back Right hip. Pain is intermittent. Aching Denies sx. Has used Excedrin, with relief. Endorses yesterday she felt better, went out and shopping. Endorses that the walking seemed to exacerbate. Denies unilateral weakness, saddle anesthesia, inability to ambulate or IV drug usage. The history is provided by the patient. No language asst was used. Back Pain This is a new problem. The current episode started more than 1 week ago. The problem occurs constantly. The problem has not changed since onset.The pain is associated with no known injury. The pain is present in the sacro-iliac joint. The quality of the pain is described as aching. The pain is at a severity of 5/10. The pain is moderate. The symptoms are aggravated by certain positions. The pain is The same all the time. Stiffness is present All day. Pertinent negatives include no chest pain, no fever, no numbness, no weight loss, no headaches, no abdominal pain, no abdominal swelling, no bowel incontinence, no perianal numbness, no bladder incontinence, no dysuria, no pelvic pain, no leg pain, no paresthesias, no paresis, no tingling and no weakness. She has tried NSAIDs (excedrin) for the symptoms. The treatment provided moderate relief. Risk factors include menopause and lack of exercise. PAST MEDICAL HISTORY Diagnosis Date Anxiety H/O: rheumatic fever Hypertension PAST SURGICAL HISTORY Procedure Laterality Date TONSILLECTOMY & ADENOIDECTOMY <AGE 10 ALLERGIES Penicillins MEDICATIONS amLODIPine-benazepril (LOTREL) 10-20 mg per capsule Take 1 capsule by mouth once daily. ARIPiprazole (ABILIFY) 10 mg tablet Take 10 mg by mouth once daily. cyclobenzaprine (FLEXERIL) 10 mg tablet Take 1 tablet by mouth three times a day as needed for muscle spasm. divalproex DR (DEPAKOTE) 500 mg EC tablet Take 500 mg by mouth twice daily. fluvoxaMINE (LUVOX) 50 mg tablet Take 50 mg by mouth daily at bedtime. (Patient not taking: Reported on 07/12/2023) methylPREDNISolone (MEDROL, MILTON,) 4 mg Dose-Pack Follow dosing instructions, take with food. zolpidem (AMBIEN) 10 mg Take 10 mg by mouth daily at bedtime. No family history on file. Social History Tobacco Use Smoking status: Never Smokeless tobacco: Never Substance Use Topics Alcohol use: Never Drug use: Never Review of Systems Constitutional: Negative for activity change, appetite change, chills, fever and weight loss. Eyes: Negative for pain, discharge, redness and itching. Respiratory: Negative for apnea, cough, choking, chest tightness and shortness of breath. Cardiovascular: Negative for chest pain. Gastrointestinal: Negative for abdominal pain, bowel incontinence, diarrhea and vomiting. Genitourinary: Negative for bladder incontinence, dysuria and pelvic pain. Musculoskeletal: Positive for back pain. Skin: Negative for color change, pallor, rash and wound. Allergic/Immunologic: Negative for environmental allergies, food allergies and immunocompromised state. Neurological: Negative for dizziness, tingling, facial asymmetry, weakness, numbness, headaches and paresthesias. Hematological: Negative for adenopathy. Does not bruise/bleed easily. Psychiatric/Behavioral: Negative for agitation and behavioral problems. Objective BP 131/80 Pulse 83 Temp 36.7 C (98.1 F) Resp 18 Wt 82.5 kg (181 lb 12.8 oz) SpO2 97% Physical Exam Vitals and nursing note reviewed. Constitutional: General: She is not in acute distress. Appearance: Normal appearance. She is normal weight. She is not ill-appearing, toxic-appearing or diaphoretic. HENT: Head: Normocephalic and atraumatic. Right Ear: Ear canal and external ear normal. Left Ear: Ear canal and external ear normal. Nose: Nose normal. No congestion or rhinorrhea. Mouth/Throat: Mouth: Mucous membranes are moist. Pharynx: No oropharyngeal exudate or posterior oropharyngeal erythema. Eyes: General: Right eye: No discharge. Left eye: No discharge. Extraocular Movements: Extraocular movements intact. Conjunctiva/sclera: Conjunctivae normal. Pupils: Pupils are equal, round, and reactive to light. Cardiovascular: Rate and Rhythm: Normal rate and regular rhythm. Pulses: Normal pulses. Heart sounds: Normal heart sounds. No murmur heard. No friction rub. Pulmonary: Effort: Pulmonary effort is normal. No respiratory distress. Breath sounds: Normal breath sounds. No stridor. No wheezing, rhonchi or rales. Chest: Chest wall: No tenderness. Abdominal: General: Abdomen is flat. There is no distension. Palpations: Abdomen is soft. There is no mass. Tenderness: There is no abdominal tenderness. There is no right CVA tenderness, left CVA tenderness, guarding or rebound. Hernia: No hernia is present. Musculoskeletal: General: No swelling, tenderness, deformity or signs of injury. Normal range of motion. Cervical back: Normal range of motion and neck supple. No rigidity. Right lower leg: No edema. Left lower leg: No edema. Comments: No midline cervical, thoracic or lumbar TTP Lymphadenopathy: Cervical: No cervical adenopathy. Skin: General: Skin is warm and dry. Capillary Refill: Capillary refill takes less than 2 seconds. Coloration: Skin is not jaundiced or pale. Findings: No bruising, erythema, lesion or rash. Neurological: General: No focal deficit present. Mental Status: She is alert and oriented to person, place, and time. Cranial Nerves: No cranial nerve deficit. Sensory: No sensory deficit. Motor: No weakness. Coordination: Coordination normal. Gait: Gait normal. Psychiatric: Mood and Affect: Mood normal. Behavior: Behavior normal. Thought Content: Thought content normal. Judgment: Judgment normal. Assessment and Plan ASSESSMENT/PLAN: 1. Right hip pain - ICD9: 719.45, ICD10: M25.551 (primary diagnosis) X 2 to 3 weeks No trauma or injury No red flags States symptoms improved until exacerbated by walking yesterday RX Flexeril and Medrol Dose Pack - XR HIP GENERAL 3V PELV/AP/LAT RIGHT Will call with results 2. Lumbar pain - ICD9: 724.2, ICD10: M54.50 X 2 to 3 weeks No trauma or injury No red flags States symptoms improved until exacerbated by walking yesterday RX Flexeril and Medrol Dose Pack - XR LUMBAR LIMITED 2V AP/LAT Will call with results Layla St APRN.BLUING OVEN TENDER documented in this encounter [facility] 04-16-2023 Note HNO ID: [id number] Author: Az Duncan MD Service: ? Author Type: Physician Type: Progress Notes Filed: 04/16/2023 7:47 AM Note Text: Patient presents with: Ear Pain: right ear pain and sore throat x 1 day HPI: Feeling earache/sore throat since yesterday. Positive symptoms: Sore throat, Earache, mild Nasal Congestion/Rhinorrhea, Negative symptoms: Cough, Fever, Chills, Body Aches, Malaise, Fatigue, OTC: Cold Medicine No known sick contacts but lives with 4 grandchildren. PAST MEDICAL HISTORY Diagnosis Date Anxiety H/O: rheumatic fever Hypertension PAST SURGICAL HISTORY Procedure Laterality Date TONSILLECTOMY AND ADENOIDECTOMY MEDICATIONS: Current Outpatient Medications Medication Sig amLODIPine-benazepril (LOTREL) 10-20 mg per capsule Take 1 capsule by mouth once daily. divalproex DR (DEPAKOTE) 500 mg EC tablet Take 500 mg by mouth twice daily. fluvoxaMINE (LUVOX) 50 mg tablet Take 50 mg by mouth daily at bedtime. zolpidem (AMBIEN) 10 mg Take 10 mg by mouth daily at bedtime. No current facility-administered medications for this visit. ALLERGIES: ALLERGIES Allergen Reactions Penicillins Rash VITALS: BP 136/84 Pulse 76 Temp 36.9 ?C (98.4 ?F) Resp 16 Wt 81.2 kg (179 lb) SpO2 95% PHYSICAL EXAM: GEN: Pleasant, in no acute distress. HEENT: PERRL, EOMI, conjunctiva clear Ears: canals with scant cerumen. TMs without erythema, bulge, or effusion Sinuses: non-tender frontal sinus, non-tender maxillary sinuses Throat: moist mucous membranes, mild erythema, no exudate Neck: supple, no thyromegaly, no lymphadenopathy HEART: regular rate and rhythm, no murmurs LUNGS: clear to auscultation, no wheezes or crackles, no increased WOB ASSESSMENT/PLAN: 1. Sore throat - ICD9: 462, ICD10: J02.9 - STREP A MOLECULAR (POC) - negative. - suspect viral pharyngitis. - Discussed supportive care treatment with rest, cold medicine, and analgesia. Az Duncan MD [facility] 04-16-2023 History of Presen t illness Narrative Patient presents with: Ear Pain: right ear pain and sore throat x 1 day HPI: Feeling earache/sore throat since yesterday. Positive symptoms: Sore throat, Earache, mild Nasal Congestion/Rhinorrhea, Negative symptoms: Cough, Fever, Chills, Body Aches, Malaise, Fatigue, OTC: Cold Medicine No known sick contacts but lives with 4 grandchildren. PAST MEDICAL HISTORY Diagnosis Date Anxiety H/O: rheumatic fever Hypertension PAST SURGICAL HISTORY Procedure Laterality Date TONSILLECTOMY & ADENOIDECTOMY <AGE 10 MEDICATIONS: Current Outpatient Medications Medication Sig amLODIPine-benazepril (LOTREL) 10-20 mg per capsule Take 1 capsule by mouth once daily. divalproex DR (DEPAKOTE) 500 mg EC tablet Take 500 mg by mouth twice daily. fluvoxaMINE (LUVOX) 50 mg tablet Take 50 mg by mouth daily at bedtime. zolpidem (AMBIEN) 10 mg Take 10 mg by mouth daily at bedtime. No current facility-administered medications for this visit. ALLERGIES: ALLERGIES Allergen Reactions Penicillins Rash VITALS: BP 136/84 Pulse 76 Temp 36.9 C (98.4 F) Resp 16 Wt 81.2 kg (179 lb) SpO2 95% PHYSICAL EXAM: GEN: Pleasant, in no acute distress. HEENT: PERRL, EOMI, conjunctiva clear Ears: canals with scant cerumen. TMs without erythema, bulge, or effusion Sinuses: non-tender frontal sinus, non-tender maxillary sinuses Throat: moist mucous membranes, mild erythema, no exudate Neck: supple, no thyromegaly, no lymphadenopathy HEART: regular rate and rhythm, no murmurs LUNGS: clear to auscultation, no wheezes or crackles, no increased WOB ASSESSMENT/PLAN: 1. Sore throat - ICD9: 462, ICD10: J02.9 - STREP A MOLECULAR (POC) - negative. - suspect viral pharyngitis. - Discussed supportive care treatment with rest, cold medicine, and analgesia. Az Duncan MD documented in this encounter [facility] 08-10-2022 Note HNO ID: [id number] Author: Carmencita Green APRN.BLUING OVEN TENDER Service: ? Author Type: Nurse Practitioner Type: Progress Notes Filed: 08/10/2022 3:15 PM Note Text: Subjective Headache Pertinent negatives include no fever, no shortness of breath, no nausea and no vomiting. Deyanira Moon is a 66 year old female who presents with congestion, headache, rhinorrhea, sinus pain, left ear pain and mild intermittent sore throat x 10 days. Patient denies fever, SOB, abdominal pain, nausea, vomiting or diarrhea. Patient reports also trying OTC cold medicine without relief. Review of Systems Constitutional: Negative for chills and fever. HENT: Positive for congestion, ear pain, sinus pain and sore throat. Respiratory: Positive for cough and sputum production. Negative for shortness of breath. Gastrointestinal: Negative for abdominal pain, diarrhea, nausea and vomiting. Neurological: Positive for headaches. BP 128/84 Pulse 77 Temp 36.7 ?C (98 ?F) Resp 18 Wt 73.3 kg (161 lb 9.6 oz) SpO2 97% No past medical history on file. No past surgical history on file. ALLERGIES Penicillins MEDICATIONS amLODIPine-benazepril (LOTREL) 10-20 mg per capsule Take 1 capsule by mouth once daily. divalproex DR (DEPAKOTE) 500 mg EC tablet Take 500 mg by mouth twice daily. fluvoxaMINE (LUVOX) 50 mg tablet Take 50 mg by mouth daily at bedtime. zolpidem (AMBIEN) 10 mg Take 10 mg by mouth daily at bedtime. doxycycline (VIBRA-TABS) 100 mg tablet Take 1 tablet by mouth twice daily for 10 days. No family history on file. Social History Tobacco Use Smoking status: Never Smokeless tobacco: Never Substance Use Topics Alcohol use: Never Drug use: Never Objective Physical Exam Vitals and nursing note reviewed. Constitutional: Appearance: Normal appearance. HENT: Head: Normocephalic. Right Ear: Tympanic membrane and ear canal normal. Left Ear: Tympanic membrane and ear canal normal. Nose: Congestion and rhinorrhea present. Right Turbinates: Swollen. Left Turbinates: Swollen. Mouth/Throat: Pharynx: No oropharyngeal exudate or posterior oropharyngeal erythema. Eyes: Conjunctiva/sclera: Conjunctivae normal. Cardiovascular: Rate and Rhythm: Normal rate and regular rhythm. Pulmonary: Effort: Pulmonary effort is normal. Breath sounds: Normal breath sounds. Skin: General: Skin is warm and dry. Neurological: Mental Status: She is alert. ASSESSMENT/PLAN: 1. Bacterial sinusitis - ICD9: 473.9, 041.9, ICD10: J32.9, B96.89 - Will begin treatment with Doxycycline - OTC flonase daily - Supportive care with plenty of fluids, rest, and analgesia prn. - Follow up in 3-5 days if symptoms persist or worsen. - DOXYCYCLINE HYCLATE 100 MG TABLET Delia Guerra APRN Student TEACHING PROVIDER (Physician/PA/FAST FOOD FRY COOK) NOTE OF PERSONAL INVOLVEMENT IN CARE: I have personally seen and examined the patient and performed the medical decision-making components. I have reviewed the Advanced Practice Registered Nurse (FAST [employer]OD FRY COOK) Student's documentation and verified the findings in the note as written. Any additions or changes are noted in bold/italics. Signature: Carmencita Green Date: 08/10/2022 Time: 3:14 PM [facility] 08-10-2022 History of Presen t illness Narrative Subjective Headache Pertinent negatives include no fever, no shortness of breath, no nausea and no vomiting. Deyanira Moon is a 66 year old female who presents with congestion, headache, rhinorrhea, sinus pain, left ear pain and mild intermittent sore throat x 10 days. Patient denies fever, SOB, abdominal pain, nausea, vomiting or diarrhea. Patient reports also trying OTC cold medicine without relief. Review of Systems Constitutional: Negative for chills and fever. HENT: Positive for congestion, ear pain, sinus pain and sore throat. Respiratory: Positive for cough and sputum production. Negative for shortness of breath. Gastrointestinal: Negative for abdominal pain, diarrhea, nausea and vomiting. Neurological: Positive for headaches. BP 128/84 Pulse 77 Temp 36.7 C (98 F) Resp 18 Wt 73.3 kg (161 lb 9.6 oz) SpO2 97% No past medical history on file. No past surgical history on file. ALLERGIES Penicillins MEDICATIONS amLODIPine-benazepril (LOTREL) 10-20 mg per capsule Take 1 capsule by mouth once daily. divalproex DR (DEPAKOTE) 500 mg EC tablet Take 500 mg by mouth twice daily. fluvoxaMINE (LUVOX) 50 mg tablet Take 50 mg by mouth daily at bedtime. zolpidem (AMBIEN) 10 mg Take 10 mg by mouth daily at bedtime. doxycycline (VIBRA-TABS) 100 mg tablet Take 1 tablet by mouth twice daily for 10 days. No family history on file. Social History Tobacco Use Smoking status: Never Smokeless tobacco: Never Substance Use Topics Alcohol use: Never Drug use: Never Objective Physical Exam Vitals and nursing note reviewed. Constitutional: Appearance: Normal appearance. HENT: Head: Normocephalic. Right Ear: Tympanic membrane and ear canal normal. Left Ear: Tympanic membrane and ear canal normal. Nose: Congestion and rhinorrhea present. Right Turbinates: Swollen. Left Turbinates: Swollen. Mouth/Throat: Pharynx: No oropharyngeal exudate or posterior oropharyngeal erythema. Eyes: Conjunctiva/sclera: Conjunctivae normal. Cardiovascular: Rate and Rhythm: Normal rate and regular rhythm. Pulmonary: Effort: Pulmonary effort is normal. Breath sounds: Normal breath sounds. Skin: General: Skin is warm and dry. Neurological: Mental Status: She is alert. ASSESSMENT/PLAN: 1. Bacterial sinusitis - ICD9: 473.9, 041.9, ICD10: J32.9, B96.89 - Will begin treatment with Doxycycline - OTC flonase daily - Supportive care with plenty of fluids, rest, and analgesia prn. - Follow up in 3-5 days if symptoms persist or worsen. - DOXYCYCLINE HYCLATE 100 MG TABLET Delia Guerra APRN Student TEACHING PROVIDER (Physician/PA/FAST [employer]OD FRY COOK) NOTE OF PERSONAL INVOLVEMENT IN CARE: I have personally seen and examined the patient and performed the medical decision-making components. I have reviewed the Advanced Practice Registered Nurse ([employer]Y [employer]OOK) Student's documentation and verified the findings in the note as written. Any additions or changes are noted in bold/italics. Signature: Carmencita Green Date: 08/10/2022 Time: 3:14 PM documented in this encounter [facility] 08-10-2022 Instructions Delia Guerra - 08/10/2022 2:33 PM EST ASSESSMENT/PLAN: 1. Bacterial sinusitis - ICD9: 473.9, 041.9, ICD10: J32.9, B96.89 - Will begin treatment with Doxycycline - OTC flonase daily - Supportive care with plenty of fluids, rest, and analgesia prn. - Follow up in 3-5 days if symptoms persist or worsen. - DOXYCYCLINE HYCLATE 100 MG TABLET Delia Guerra APRN Student documented in this encounter [facility] 06-22-2022 Miscellaneous Notes * * * * Physician Interpretation * * * * EXAMINATION: XR KNEE 4V AP/PA BOTH+LAT/NINOSKA RT CLINICAL HISTORY: Right knee pain Technique: XR KNEE 4V AP/PA BOTH+LAT/NINOSKA RT -- RIGHT with 4 views on 4 images Comparison: None RESULT: No acute fracture or dislocation. Bilateral medial compartment joint space narrowing. IMPRESSION IMPRESSION: No acute fracture or dislocation Laboratory Supervisor: CHRISTINA Transcribe Date/Time: Jun 22 2022 4:20P Dictated by : LUCINA REDDY MD Talked with patient in person about her x-ray results. Patient will follow care plan discussed with provider. documented in this encounter [facility] 06-22-2022 History of Presen t illness Narrative Subjective HPI HPI Deyanira Moon is a 66 year old female who presents today for CC of right knee pain. This started months ago. Has tried otc medication for relief. Symptoms are worsened by rom of knee. Denies history of surgery or injury to right lower extremity. Denies numbness and tingling of right lower extremity. . .Patient presents with: Right Knee Pain: X several months but worse last few days-cannot recall an injury History reviewed. No pertinent past medical history. No past surgical history on file. ALLERGIES Penicillins MEDICATIONS amLODIPine-benazepril (LOTREL) 10-20 mg per capsule Take 1 capsule by mouth once daily. divalproex DR (DEPAKOTE) 500 mg EC tablet Take 500 mg by mouth twice daily. fluvoxaMINE (LUVOX) 50 mg tablet Take 50 mg by mouth daily at bedtime. zolpidem (AMBIEN) 10 mg Take 10 mg by mouth daily at bedtime. No family history on file. Social History Tobacco Use Smoking status: Never Smokeless tobacco: Never ROS Objective Blood pressure 122/82, pulse 69, temperature 37.2 C (98.9 F), temperature source Tympanic, resp. rate 16, weight 73.8 kg (162 lb 9.6 oz), SpO2 97 %. Physical Exam Constitutional: General: She is not in acute distress. Appearance: She is not toxic-appearing or diaphoretic. HENT: Head: Normocephalic and atraumatic. Pulmonary: Effort: Pulmonary effort is normal. No accessory muscle usage or respiratory distress. Musculoskeletal: Right knee: No swelling, deformity, effusion, erythema, ecchymosis or lacerations. Normal range of motion. Tenderness present over the medial joint line and lateral joint line. No LCL laxity or MCL laxity. Left knee: No LCL laxity or MCL laxity. Neurological: Mental Status: She is alert and oriented to person, place, and time. ASSESSMENT/PLAN: 1. Chronic pain of right knee - ICD9: 719.46, 338.29, ICD10: M25.561, G89.29 Xray negative Will try steroid F/u with pcp if s/s persist/worsen/change. - XR KNEE GENERAL 4V AP BOTH/PA BOTH/LAT/MERC RIGHT IMPRESSION: No acute fracture or dislocation Dictated by : LUCINA REDDY MD - PREDNISONE 20 MG TABLET Agrees to plan Anselmo Vallecillo APRN.CNP documented in this encounter [facility] documented [facility] Diagnosis Bacterial sinusitis- Primary Unspecified sinusitis (chronic) [facility] Diagnosis Sore throat- Primary Acute pharyngitis [facility] Diagnosis Right hip pain- Primary Pain in joint, pelvic region and thigh Lumbar pain Lumbago documented [facility] this [facility] (narrative)* Diagnostic Procedure Only (Urgent) - Closed Specialty Diagnoses / Procedures Referred By Contlorna t Referred To Contact XR IMAGING Diagnoses Chronic pain of right knee Procedures XR KNEE GENERAL 4V AP BOTH/PA BOTH/LAT/MERC RIGHT RADIOLOGIC EXAM KNEE COMPLETE 4/MORE VIEWS Anselmo Vallecillo APRN.BLUING OVEN TENDER [address] [place] [address] Xr Imaging Referral ID Status Reason Start Date Expiration Date V isits Requested Visits Authorized [id number] Closed Auto-Generate d Referral 06/22/2022 07/22/2023 1 1 [facility] Summary Purpose Family History No Family History Records FoundNo Family History Records FoundNo Family History Records Found Advance Directives No Advanced Directives Records FoundNo Advanced Directives Records FoundNo Advanced Directives Records Found Reason for Referral Specialty Diagnoses / Procedures Referred By Contac t Referred To Contact Layla St APRN.BLUING OVEN TENDER [address] [place] [address] Referral ID Status Reason Start Date Expiration Date V isits Requested Visits Authorized [id number] Authorized 06/12/2023 07/11/2024 1 1 Specialty Diagnoses / Procedures Referred By Contac t Referred To Contact XR IMAGING Diagnoses Lumbar pain Procedures XR LUMBAR LIMITED 2V AP/LAT RADEX SPINE LUMBOSACRAL 2/[address] APRN.BLUING OVEN TENDER [address] [place] [address] [place] [address] Referral ID Status Reason Start Date Expiration Date V isits Requested Visits Authorized [id number] Closed Auto-Generate d Referral 07/12/2023 08/10/2024 1 1 Specialty Diagnoses / Procedures Referred By Contac t Referred To Contact XR IMAGING Diagnoses Right hip pain Procedures XR HIP GENERAL 3V PELV/AP/LAT RIGHT RADEX HIP UNILATERAL WITH PELVIS 2-[address] APRN.BLUING OVEN TENDER [address] [place] [address] [place] [address] Referral ID Status Reason Start Date Expiration Date V isits Requested Visits Authorized [id number] Closed Auto-Generate d Referral 07/12/2023 08/10/2024 1 1 Additional Source Comments INFORMATION SOURCE (unrecogn ized section and content) DATE CREATED AUTHOR AUTHOR'S ORGANIZ ATION 03/27/2018 [facility] [employer] DATE CREATED AUTHOR AUTHOR'S ORGANIZ ATION 07/14/2023 [facility] Source Comments (unrecognize d section and content) In the event this informatio n is protected by the Federal Confidentiality of Alcohol and Drug Abuse Patient Records regulations: The Federal rules restrict any use of the information to criminally investigate or prosecute any alcohol or drug abuse patient.[facility] the event this information is protected by the Federal Confidentiality of Alcohol and Drug Abuse Patient Records regulations: The Federal rules restrict any use of the information to criminally investigate or prosecute any alcohol or drug abuse patient.[facility] the event this information is protected by the Federal Confidentiality of Alcohol and Drug Abuse Patient Records regulations: The Federal rules restrict any use of the information to criminally investigate or prosecute any alcohol or drug abuse patient.[facility] Center[facility] the event this information is protected by the Federal Confidentiality of Alcohol and Drug Abuse Patient Records regulations: The Federal rules restrict any use of the information to criminally investigate or prosecute any alcohol or drug abuse patient.[facility] Center[facility] the event this information is protected by the Federal Confidentiality of Alcohol and Drug Abuse Patient Records regulations: The Federal rules restrict any use of the information to criminally investigate or prosecute any alcohol or drug abuse patient.[facility] Center[facility] the event this information is protected by the Federal Confidentiality of Alcohol and Drug Abuse Patient Records regulations: The Federal rules restrict any use of the information to criminally investigate or prosecute any alcohol or drug abuse patient.[facility] Reason for Visit (unrecogniz ed section and content) Reason Comments Right Knee Pain X several months but worse last few days-cannot recall an injury Reason Comments Headache Throat pain, bilater al ear decreased hearing x 1.5 wks. Reason Comments Ear Pain right ear pain and s ore throat x 1 day Reason Comments Back Pain X 2-3 wks, unsure of how it started Care Teams (unrecognized sec tion and content) Kennel Supervisor Relationship Specialty Start Date End Date Dakotah Hernandez DO [address] [facility] [place] [address] PCP - General Family Medicine 08/10/22 Kennel Supervisor Relationship Specialty Start Date End Date Dakotah Hernandez DO [address] [place] [address] PCP - General Family Medicine 08/10/22 Kennel Supervisor Relationship Specialty Start Date End Date Dakotah Hernandez DO [address] [place] [address] PCP - General Family Medicine 08/10/22 FOR RECORDS PERTAINING TO PATIENTS WHO ARE OR HAVE BEEN ENROLLED IN A CHEMICAL DEPENDENCY/SUBSTANCEABUSE PROGRAM, SOME INFORMATION MAY BE OMITTED. This clinical summary was aggregated from multiple sources. Caution should be exercised in using it in the provision of clinical care. This summary normalizes information from multiple sources, and as a consequence, information in this document may materially change the coding, format and clinical context of patient data. In addition, data may be omitted in some cases. CLINICAL DECISIONS SHOULD BE BASED ON THE PRIMARY CLINICAL RECORDS. [facility] [employer] provides no warranty or guarantee of the accuracy or completeness of information in this document.
[2023-10-17 12:19] LABS: Absolute Lymphocyte Count 2.84 X10^3/uL (0.83-4.51); Absolute Neutrophil Count 2.3 X10^3/uL (2.0-7.7); Basophil# 0.06 X10^3/uL; Eosinophil# 0.09 X10^3/uL; Eosinophils% 1.5 % (0-5); Hematocrit 45.4 % (37-47); Hemoglobin 15.1 g/dL (12.0-15.0); Lymphocyte # 2.84 X10^3/ul (0.83-4.51); Mean Corp Hgb Conc 33.3 g/dL (32-36); Mean Corpuscular Hgb 32.2 pg (27.0-32.0); Mean Corpuscular Volume 96.8 fL (81-99); Mean Platelet Vol. 10.2 fl (6.2-12.0); Monocyte# 0.59 X10^3/uL; NRBC Flagged by Analyzer 0 % (0-5); Neutrophil # 2.31 X10^3/uL (2.7-7.7); Platelet Count 277 K/mm3 (150-450); RBC Distribution Width CV 12.5 % (11.6-14.6); RBC Distribution Width SD 44.5 fl (35.1-43.9); Red Blood Count 4.69 M/mm3 (4.2-5.4); White Blood Count 5.9 K/mm3 (4.4-11.0)
[2023-10-17 13:13] LABS: ALB/GLOB Ratio 1.1 RATIO (0.9-2.4); AST(SGOT) 28 U/L (15-37); Alanine Aminotransfer ALT/SGPT 44 U/L (13-56); Albumin, Serum 3.5 g/dL (3.2-5.0); Alkaline Phosphatase 63 U/L (45-117); Anion Gap 6 (5-15); BUN 12 mg/dL (7-18); BUN/Creat Ratio 19.4 RATIO (10-20); Calcium,Total 9.2 mg/dL (8.5-10.1); Chloride 111 mmol/L (98-107); Creatinine, Serum 0.62 mg/dL (0.55-1.02); EST Glomerular Filtration Rate 101 mL/min (>60); Est Glom Filt Rate - Afr Amer 123 mL/min (>60); Globulin 3.2 g/dL (2.2-4.2); Glucose 92 mg/dL (74-106); Potassium 3.5 mmol/L (3.5-5.1); Protein, Total 6.7 g/dL (6.4-8.2); Sodium Level 144 mmol/L (136-145)
== END | disposition home or self-care (01) ==
LOC: BIMLAB 11:01
PROVIDERS: PCP Family Medicine; Visit Provider Family Medicine
DX: I10 Essential (primary) hypertension (principal)
CPT/HCPCS: 36415; 80053; 85025

== ENCOUNTER → 2024-04-23 | Outpatient (CLI) | payer MEDICARE, OTHER, SELFPAY ==
[2024-04-23 17:05] LABS: T4 Free Direct 0.92 ng/dL (0.76-1.46); Thyroid Stim Hormone (TSH) 1.83 uIU/mL (0.358-3.74)
== END | disposition home or self-care (01) ==
LOC: BIMLAB 14:58
PROVIDERS: PCP Family Medicine; Referring Provider Family Medicine; Visit Provider Family Medicine
DX: G25.1 Drug-induced tremor (principal)
CPT/HCPCS: 36415; 84439; 84443

== ENCOUNTER → 2024-05-22 | Outpatient (CLI) | payer MEDICARE, OTHER, SELFPAY ==
--- NOTE | 2024-05-22 12:42 | MRI_ITS ---
STUDY: MRI BRAIN WITH AND WITHOUT CONTRAST REASON FOR EXAM: Female, 68 years old. tremor -- r/o any previous strokes or issues TECHNIQUE: Standardized multiplanar fat and water weighted pulse sequences were obtained. IV 14ml Clariscan was administered for the contrast portion of the examination. COMPARISON: None. FINDINGS: Normal size of the ventricles and extra-axial spaces for the patient''s age. Normal white matter tracts of the supratentorial brain. There is no evidence for recent intracranial ischemia or other cause of cytotoxic edema on diffusion weighted imaging (DWI). Normal T2* images of the brain without demonstrated susceptibility artifact. There is no demonstrated hemosiderin stain. Normal bilateral basal ganglia. Normal thalami. There is no extra-axial fluid accumulation. Normal flow voids within the major intracranial circulation suggesting patency by spin echo criteria. Normal venous enhancement. There is no enhancing intra-axial or extra-axial abnormality. Normal sella turcica, pituitary gland, infundibular stalk, optic chiasm and hypothalamus. Normal tectal plate and pineal gland. Normal midbrain, mik and medulla. Mid brain iron stores are preserved. Normal cerebellum. Normal basal cisterns. There is mild chronic otomastoiditis of the right temporal bone. Normal bilateral internal auditory canals. No demonstrated orbital abnormality, within the constraints of a routine brain study. Normal visualized paranasal sinuses. Normal calvarium and skull base. Normal visualized soft tissue structures. Normal visualized upper cervical spine. MRI/Brain W/WO Contrast IMPRESSION: Normal unenhanced and enhanced MRI of the brain. Electronically Signed: Serafin Be MD at 15:04 EDT ,
[2024-05-22 13:17] LABS: CREATININE FINGERSTICK < 1.0 mg/dL (0.55-1.02); EGFR FINGERSTICK > 60.0000 mL/min (>60)
== END | disposition home or self-care (01) ==
LOC: MRI 12:31
PROVIDERS: PCP Family Medicine; Referring Provider Family Medicine; Visit Provider Family Medicine
DX: R25.1 Tremor, unspecified (principal); G96.9 Disorder of central nervous system, unspecified
CPT/HCPCS: 70553; A9575

== ENCOUNTER → 2024-06-12 | Outpatient (CLI) | payer MEDICARE, OTHER, SELFPAY ==
--- NOTE | 2024-06-12 15:23 | RAD_ITS ---
INDICATION: pain EXAMINATION/TECHNIQUE: X-RAY - XR Spine Lumbar 2 or 3 Views COMPARISON: No relevant prior comparison study available FINDINGS: VERTEBRAE: Mild decreased height of L4 vertebra. No evidence of acute compression fracture deformity. Minimal anterolisthesis of L4 over L5. Preservation of the normal lumbar lordosis. Mild levoscoliosis of the lower lumbar spine. DISCS: Multilevel disc space narrowing. Facet arthropathy of the lower lumbar spine. INCLUDED ABDOMEN: Atherosclerotic calcifications of the abdominal aorta. RAD/Lumbar Spine 2 or 3 Views IMPRESSION: Degenerative changes as described above. Electronically Signed: Martinez Villegas MD at 15:43 EDT ,
--- NOTE | 2024-06-12 15:23 | RAD_ITS ---
INDICATION: pain EXAMINATION/TECHNIQUE: X-RAY - XR Spine Thoracic 3 Views COMPARISON: No relevant prior comparison study available FINDINGS: VERTEBRAE: Preserved vertebral body height. No evidence of acute compression fracture deformity. Demineralization of the osseous structures. No spondylolisthesis. Mild increased kyphosis of the thoracic spine. No substantial scoliosis. DISCS: Disc spaces are maintained. INCLUDED CHEST/ABDOMEN: No paravertebral soft tissue swelling. Tortuosity of the thoracic aorta. RAD/Thoracic Spine 3 Views IMPRESSION: No evidence of acute thoracic spinal fracture or spondylolisthesis. Electronically Signed: Martinez Villegas MD at 15:57 EDT ,
== END | disposition home or self-care (01) ==
PROVIDERS: PCP Family Medicine; Referring Provider Physician Assistant; Visit Provider Physician Assistant
DX: M54.50 Low back pain, unspecified (principal)
CPT/HCPCS: 72072; 72100

== ENCOUNTER → 2024-06-20 | Outpatient (CLI) | payer MEDICARE, OTHER, SELFPAY ==
[2024-06-20 17:08] LABS: Valproic Acid (Depakene) Level 102 ug/mL (50-100)
== END | disposition home or self-care (01) ==
PROVIDERS: PCP Family Medicine; Referring Provider Nurse Practitioner Psychiatric/Mental Health; Visit Provider Nurse Practitioner Psychiatric/Mental Health
DX: F39 Unspecified mood [affective] disorder (principal)
CPT/HCPCS: 36415; 80164

== ENCOUNTER → 2024-07-22 | Outpatient (CLI) | payer MEDICARE, OTHER, SELFPAY ==
[2024-07-22 16:35] LABS: Absolute Lymphocyte Count 2.27 X10^3/uL (0.83-4.51); Absolute Neutrophil Count 3.2 X10^3/uL (2.0-7.7); Basophil# 0.05 X10^3/uL; Basophil% 0.8 % (0-1); Eosinophil# 0.02 X10^3/uL; Eosinophils% 0.3 % (0-5); Hematocrit 46.1 % (37-47); Hemoglobin 15.7 g/dL (12.0-15.0); Lymphocyte # 2.27 X10^3/ul (0.83-4.51); Lymphocyte % 37.3 % (19-41); Mean Corp Hgb Conc 34.1 g/dL (32-36); Mean Corpuscular Hgb 31.9 pg (27.0-32.0); Mean Corpuscular Volume 93.7 fL (81-99); Monocyte# 0.56 X10^3/uL; Monocyte% 9.2 % (0-10); NRBC Flagged by Analyzer 0 % (0-5); Neutrophil # 3.18 X10^3/uL (2.7-7.7); Neutrophil % 52.2 % (47-70); Platelet Count 254 K/mm3 (150-450); RBC Distribution Width CV 12.2 % (11.6-14.6); RBC Distribution Width SD 42.5 fl (35.1-43.9); Red Blood Count 4.92 M/mm3 (4.2-5.4); White Blood Count 6.1 K/mm3 (4.4-11.0)
[2024-07-22 16:57] LABS: ALB/GLOB Ratio 1.1 RATIO (0.9-2.4); AST(SGOT) 20 U/L (15-37); Alanine Aminotransfer ALT/SGPT 22 U/L (13-56); Albumin, Serum 3.8 g/dL (3.2-5.0); Alkaline Phosphatase 57 U/L (45-117); Anion Gap 9 (5-15); BUN 22 mg/dL (7-18); BUN/Creat Ratio 25.4 RATIO (10-20); Calcium,Total 9.9 mg/dL (8.5-10.1); Chloride 103 mmol/L (98-107); Creatinine, Serum 0.87 mg/dL (0.55-1.02); EST Glomerular Filtration Rate 69 mL/min (>60); Est Glom Filt Rate - Afr Amer 83 mL/min (>60); Globulin 3.6 g/dL (2.2-4.2); Glucose 165 mg/dL (74-106); Protein, Total 7.4 g/dL (6.4-8.2); Sodium Level 140 mmol/L (136-145)
== END | disposition home or self-care (01) ==
LOC: BIMLAB 14:26
PROVIDERS: PCP Family Medicine; Visit Provider Family Medicine
DX: R63.4 Abnormal weight loss (principal); R53.83 Other fatigue
CPT/HCPCS: 36415; 80053; 84443; 85025

== ENCOUNTER 2024-08-01 14:00 | Outpatient (RCR) | payer MEDICARE, OTHER, SELFPAY ==
--- NOTE | 2024-06-24 15:00 | HP.PTEVAL_ITS ---
Patient's Visit Information Visit Information Visit Information: DEYANIRA MISHRA is a 68 year old F referred to Physical Therapy by KELSIE Carter with a diagnosis of DORSALGIA ,LOW BACK PAIN. Date of Evaluation: 06/24/24 Physical Therapist: Kun Boyd PT, Cert MDT, OCS Visit Plan Frequency: 2x /Week Duration: 4 Weeks Plan: PT INTERVENTIONS DLS ,POSTURAL E'X ,LE FLEXABILITY ,THORACIC ROM/STRE NGTHENING ,LUMBAR FLEXION AND ACTIVITY MODIFICATION Subjective Subjective: This 68 y/o female presents to physical therapy thoracic and lumbar pain. Patient has had back for 4 month with insidious onset of pain . Seen DR fuentes PT ,had x-rays showed meloxicam.Patient pain located thoracic and lumbar described as dull pain. Aggravating factors extended sitting.walking/standing ,difficulty with bending and lifting. Alleviating rest. No symptoms in arms/legs. Coughing/sneezing -. Bowel/bladder -.Sleeping okay. Patient has had trauma. Patient pain affects QOL/function. Patient goals to decrease pain. SOCIAL: lives with family VOCATION: retired Pain Bilateral Back: Pain Intensity (Out of 10): 5 Pain Intensity Range: 10 Objective Objective: POSTURE:mild forward posture GAIT: reciprocal pattern slow cali trunk rotation NEURO: denies paresthesia/tingling ,reflexes L3-4,L4-5,L5-S1 1/3 PALAPTION: tender LS/SI FLEXABILITY: hamstrings min tight MMT: quads/hams 4/5 ,hip flexion 4/5 ,ankle 4/5 LUMBAR: flexion min loss ,extension mod loss ,side glides min loss THORACIC ROM: flexion min loss ,rotation mod loss ,extension mod /severe loss Special Tests L/S Slump test left side: Negative L/S Slump test right side: Negative L/S Left Straight Leg Raise: Negative L/S Right Straight Leg Raise: Negative Lumbar Standing: Flexion - Mechanical Response: No effect Lumbar Standing: Flexion - Symptoms During Testing: Decreases Lumbar Standing: Flexion - Symptoms After Testing: No effect Lumbar Standing: Extension - Mechanical Response: No effect Lumbar Standing: Extension - Symptoms During Testing: Increases Lumbar Standing: Extension - Symptoms After Testing: No effect Lumbar Standing: Right Side Glides - Mechanical Response: No effect Lumbar Standing: Right Side [place] - Symptoms During Testing: No effect Lumbar Standing: Right Side [place] - Symptoms After Testing: No effect Lumbar Standing: Left Side [place] - Mechanical Response: No effect Lumbar Standing: Left Side [place] - Symptoms During Testing: No effect Lumbar Standing: Left Side [place] - Symptoms After Testing: No effect Balance/Special Test Scores Oswestry Low Back Score: 26 Goals Goal 1:: Patient to be I with HEP for back Goal Time Frame: 4-6 Weeks Goal 2:: Patient to improve lumbar ROM for function of recovery for to put on shoes Goal Time Frame: 4-6 Weeks Goal 3:: Patient to improve back oswestry score by 5 points to improve QOL Goal Time Frame: 4-6 Weeks Goal 4:: Patient to demonstrate 50% improvement with less pain and improved function Goal Time Frame: 4-6 Weeks Rehabilitation Potential Physical Therapy Diagnosis: This patient has lumbar and thoracic pain worse with positioning and motioning testing worse with walking/standing thus benefit from skilled PT Rehabilitation Potential: Good Anticipated Interventions Patient/Client Instruction: Educate patient on: Condition and Plan of Care For the Purpose of:: To decrease pain, To increase ROM, To improve muscle performance and motor function, To increase tolerance to activity/condition/position, To improve ability of physical actions for home/community/work/leisure, To improve health of tissue, To decrease soft tissue restriction, To increase flexibility/ROM and To improve endurance Therapeutic Exercise to Include: Strength training, Body mechanics, Postural training, Flexibilty training and Dynamic Lumbar Stabilization Comment: BLE For the Purpose of:: To decrease pain, To decrease swelling/inflammation, To improve muscle performance and motor function, To increase tolerance to activity/condition/position, To improve ability of physical actions for home/community/work/leisure, To improve health of tissue, To decrease soft tissue restriction, To increase flexibility/ROM and To assume or resume ADL's Text: Thank you for the opportunity to evaluate your patient. For Medicare and Medicare HMO plans, please review the plan of care and approve it. It will need to be FAXED BACK to us at [phone] for Medicare purposes. For Medicare only, by signing this I certify the plan of care. Please let me know if there are questions or concerns regarding this plan of care. Physician Signature: Date:__
--- NOTE | 2024-08-01 14:30 | HP.PTDCSUM ---
Discharge Summary D/C summary: It has been my pleasure to treat DEYANIRA MISHRA referred by KELSIE Carter, with the diagnosis of DORSALGIA ,LOW BACK PAIN for a total of 10 visit(s). Discharge Date: 08/01/24 Please see the following information for a summary of their discharge status. Subjective Subjective: Seen Dr 1 week ago and ordered bone density Patient stated PT has not been helping Pain Bilateral Back: Pain Intensity (Out of 10): 4 Overall Improvement % Improvement: 20 Objective Objective/Function: POSTURE:mild forward posture GAIT: reciprocal pattern slow [place] trunk rotation NEURO: denies paresthesia/tingling ,reflexes L3-4,L4-5,L5-S1 1/3 PALAPTION: tender LS/SI FLEXABILITY: hamstrings min tight MMT: quads/hams 4/5 ,hip flexion 4/5 ,ankle 4/5 LUMBAR: flexion min loss ,extension mod loss ,side glides min loss THORACIC ROM: flexion min loss ,rotation mod loss ,extension mod /severe loss Goals Goal 1:: Patient to be I with HEP for back Goal Progress: Progressing Goal 2:: Patient to improve lumbar ROM for function of recovery for to put on shoes Goal Progress: Progressing Goal 3:: Patient to improve back oswestry score by 5 points to improve QOL Goal Progress: Progressing Goal 4:: Patient to demonstrate 50% improvement with less pain and improved function Goal Progress: Progressing Plan Plan: D/C HOME D/C Information Discharge Comments: HEP d/c sentence: If there are questions or concerns regarding this patient's physical therapy, please feel free to call me at [phone]. Thank you for the referral of this patient. Sincerely, Kun Boyd, PT, Cert MDT, OCS Balance/Gait/Functional tests Balance/Special Test Scores Oswestry Low Back Score: 24 Improvement % Improvement: 20
== END 2024-08-01 19:00 | disposition home or self-care (01) ==
LOC: PT 14:00
PROVIDERS: PCP Family Medicine; Referring Provider Physician Assistant; Visit Provider Physician Assistant
DX: M54.50 Low back pain, unspecified (principal)
CPT/HCPCS: 97110; 97162; 97530

== ENCOUNTER → 2024-08-12 | Outpatient (CLI) | payer MEDICARE, OTHER, SELFPAY ==
[2024-08-12 15:10] LABS: Potassium 3.6 mmol/L (3.5-5.1)
[2024-08-12 17:07] LABS: Hemoglobin A1c 4.8 % (3.8-5.6)
== END | disposition home or self-care (01) ==
LOC: BIMLAB 11:55
PROVIDERS: PCP Family Medicine; Visit Provider Family Medicine
DX: E87.6 Hypokalemia (principal); R73.9 Hyperglycemia, unspecified
CPT/HCPCS: 36415; 83036; 84132

== ENCOUNTER → 2024-08-20 | Outpatient (CLI) | payer MEDICARE, OTHER, SELFPAY ==
--- NOTE | 2024-08-20 13:56 | BD_ITS ---
STUDY: DUAL ENERGY X-RAY ABSORPTIOMETRY / DXA REASON FOR EXAM: Female, 68 years old. osteoporosis TECHNIQUE: Bone Mineral Density (BMD) measurements of lumbar spine and bilateral hips were obtained. COMPARISON: None. FINDINGS: Lumbar Spine (L1-L4): g/cm2 (0.829) / T-score (-2.0) / Z-score (0.2) Findings are suggestive of osteopenia with a moderate fracture risk. Left Femur Total: g/cm2 (0.654) / T-score (-2.4) / Z-score (-0.8) Left Femoral Neck: g/cm2 (0.513) / T-score (-3.0) / Z-score (-1.2) Right Femur Total: g/cm2 (0.612) / T-score (-2.7) / Z-score (-1.2) Right Femoral Neck: g/cm2 (0.503) / T-score (-3.1) / Z-score (-1.3) BD/Dexa Bone Density Study IMPRESSION: The patient is considered osteoporotic as outlined below according to World [employer] Organization (WHO) criteria with a high fracture risk. Reference Information: The T-score is the number of standard deviations above or below the standard which is normal for young adults at their peak bone mineral density. The World Health Organization (WHO) interprets the T-scores as follows: Above -1 Normal bone density Between -1 and -2.5 Osteopenia Equal to / or below -2.5 Osteoporosis As a practical clinical guideline, osteopenia may be graded as follows: Mild -1 through -1.5 Moderate -1.6 through -2.0 Severe -2.1 through -2.4 The Z-score is the number of standard deviations above or below age-matched controls. A Z-score of less than -1.5 would be considered abnormal. References: 1. NIH Osteoporosis and Related Bone Diseases www osteo.org 2. International Society for Clinical Densitometry www iscd.org 3. National Osteoporosis Foundation www nof.org Electronically Signed: Luca Paz MD at 15:32 EST ,
== END | disposition home or self-care (01) ==
LOC: OPBD 13:56
PROVIDERS: PCP Family Medicine; Referring Provider Family Medicine; Visit Provider Family Medicine
DX: M81.0 Age-related osteoporosis without current pathological fracture (principal)
CPT/HCPCS: 77080

== ENCOUNTER → 2024-10-21 | Outpatient (CLI) | payer MEDICARE, OTHER, SELFPAY ==
[2024-10-21 16:45] LABS: Valproic Acid (Depakene) Level 48 ug/mL (50-100)
== END | disposition home or self-care (01) ==
LOC: BIMLAB 14:06
PROVIDERS: PCP Family Medicine; Referring Provider Nurse Practitioner Psychiatric/Mental Health; Visit Provider Nurse Practitioner Psychiatric/Mental Health
DX: F39 Unspecified mood [affective] disorder (principal)
CPT/HCPCS: 36415; 80164

== ENCOUNTER → 2025-01-16 | Outpatient (CLI) | payer MEDICARE, OTHER, SELFPAY ==
[2025-01-16 13:36] LABS: Ammonia 32.9 umol/L (11-51)
== END | disposition home or self-care (01) ==
LOC: BIMLAB 10:50
PROVIDERS: PCP Family Medicine; Referring Provider Nurse Practitioner Psychiatric/Mental Health; Visit Provider Nurse Practitioner Psychiatric/Mental Health
DX: F39 Unspecified mood [affective] disorder (principal)
CPT/HCPCS: 36415; 82140